=== PATIENT | male | born 1990 | race Caucasian/White ===

== ENCOUNTER 2023-12-28 16:47 | Emergency (ER) | payer OTHER, SELFPAY ==
[2023-12-28 17:08] VITALS: BP 126/76; PULSE 106; RESP 18; TEMP 37.2; O2SAT 99; BMI 25.4
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
[2023-12-28] MEDS: Tetracaine HCl/PF 0.5% Oph Sol 4 ML DROPS 1 DROP EYE-RIGHT (18:04)
[2023-12-28] MEDS: Fluorescein Sodium STRIP 1 STRIP EYE-RIGHT (18:04)
[2023-12-28] MEDS: Erythromycin Base 0.5% Oph Oin 1 GM TUBE 1 CM EYE-RIGHT (18:13)
[2023-12-28 18:15] VITALS: BP 126/76; PULSE 106; RESP 18; TEMP 37.2; O2SAT 99
--- NOTE | 2023-12-28 18:15 | PC.NURSE ---
pt medicated per MAR.
== END 2023-12-28 18:17 | disposition home or self-care (01) ==
PROVIDERS: Emergency Provider Emergency Medicine
DX: S05.01XA Injury of conjunctiva and corneal abrasion without foreign body, right eye, initial encounter (principal); X58.XXXA Exposure to other specified factors, initial encounter; Y93.89 Activity, other specified; Y92.89 Other specified places as the place of occurrence of the external cause; Y99.9 Unspecified external cause status
CPT/HCPCS: 99282; 99283